=== PATIENT | female | born 1965 | race Caucasian/White ===

== ENCOUNTER → 2017-10-13 | Outpatient (CLI) | payer OTHER ==
[2017-10-13 16:56] LABS: EOS # 0.1 (0.04-0.40); EOS % 2.3 % (1.0-5.0); HEMATOCRIT 40.6 % (37.0-47.0); HEMOGLOBIN 13.5 g/dL (12.5-16.0); MEAN CELL VOLUME 85 fl (78-100); MEAN CORPUSCULAR HEMOGLOBIN 28 pg (27-31); MEAN CORPUSCULAR HGB CONC 33 g/dL (33-37); MONO # 0.6 (0.20-0.80); NEU # 2.8 (1.40-6.50); PLATELET COUNT 223 K/mm3 (130-400); RED BLOOD COUNT 4.76 M/mm3 (4.10-5.30); RED CELL DISTRIBUTION WIDTH 14.7 % (11.5-14.5); WHITE BLOOD COUNT 5.6 K/mm3 (4.8-10.8)
[2017-10-13 17:23] LABS: ALBUMIN 3.8 g/dL (3.5-5.0); BUN/CREATININE RATIO 20.8 (6.0-26.0); CALCIUM 9.2 mg/dL (8.4-10.2); POTASSIUM 4.1 mmol/L (3.6-5.0); TOTAL BILIRUBIN 0.6 mg/dL (0.2-1.3); TOTAL PROTEIN 7.4 g/dL (6.3-8.2)
== END ==
LOC: LAB 16:38
PROVIDERS: Nurse Practitioner Family
DX: R53.81 Other malaise (principal)

== ENCOUNTER → 2019-11-30 | Outpatient (CLI) | payer BC ==
[2019-11-30 10:47] LABS: EOS # 0.1 (0.04-0.40); EOS % 1.1 % (1.0-5.0); HEMATOCRIT 42.8 % (37.0-47.0); LYMPH# 2.5 (1.50-4.00); MEAN CELL VOLUME 87 fl (78-100); MEAN CORPUSCULAR HEMOGLOBIN 29 pg (27-31); MEAN CORPUSCULAR HGB CONC 33 g/dL (33-37); MEAN PLATELET VOLUME 9.5 fl (7.4-10.4); MONO # 0.5 (0.20-0.80); NEU # 5.6 (1.40-6.50); PLATELET COUNT 294 K/mm3 (130-400); WHITE BLOOD COUNT 8.8 K/mm3 (4.8-10.8)
[2019-11-30 11:40] LABS: POTASSIUM 4.3 mmol/L (3.5-5.1)
[2019-11-30 11:42] LABS: CALCIUM 9.3 mg/dL (8.3-10.5)
[2019-11-30 11:43] LABS: TOTAL PROTEIN 8.1 g/dL (6.4-8.3)
[2019-11-30 11:45] LABS: TOTAL BILIRUBIN 0.4 mg/dL (0.2-1.2)
== END ==
LOC: LAB 10:20
PROVIDERS: Family Medicine
DX: Z00.00 Encounter for general adult medical examination without abnormal findings (principal); E78.5 Hyperlipidemia, unspecified; R73.9 Hyperglycemia, unspecified

== ENCOUNTER → 2019-12-07 | Outpatient (CLI) | payer BC | LOC: MAMMO 11:30 | DX: Z12.31 Encounter for screening mammogram for malignant neoplasm of breast (principal); Z13.820 Encounter for screening for osteoporosis; N63.10 Unspecified lump in the right breast, unspecified quadrant; N63.20 Unspecified lump in the left breast, unspecified quadrant ==

== ENCOUNTER → 2019-12-08 | Outpatient (CLI) | payer BC | LOC: CARDLAB → CARDREHAB 08:00 → CARDLAB 08:53 | DX: E78.5 Hyperlipidemia, unspecified (principal); R06.00 Dyspnea, unspecified; R07.9 Chest pain, unspecified ==

== ENCOUNTER → 2019-12-13 | Outpatient (CLI) | payer BC | LOC: RAD 07:00 | DX: N63.10 Unspecified lump in the right breast, unspecified quadrant (principal); N63.20 Unspecified lump in the left breast, unspecified quadrant ==

== ENCOUNTER → 2019-12-23 | Outpatient (CLI) | payer BC | LOC: RAD 15:00 | DX: N63.25 Unspecified lump in the left breast, overlapping quadrants (principal); N63.15 Unspecified lump in the right breast, overlapping quadrants | CPT/HCPCS: 15989; 15990; A4648 ==

== ENCOUNTER → 2019-12-27 | Day surgery (SDC) | payer BC | LOC: MSO 07:27 | DX: Z12.11 Encounter for screening for malignant neoplasm of colon (principal); E11.9 Type 2 diabetes mellitus without complications | CPT/HCPCS: 00812; J2704; J7030 ==

== ENCOUNTER → 2020-04-25 | Outpatient (CLI) | payer BC ==
[2020-04-25 10:03] LABS: EOS # 0.1 (0.04-0.40); EOS % 1.1 % (1.0-5.0); HEMATOCRIT 43.2 % (37.0-47.0); HEMOGLOBIN 14.5 g/dL (12.5-16.0); LYMPH# 2.6 (1.50-4.00); MEAN CELL VOLUME 85 fl (78-100); MEAN CORPUSCULAR HEMOGLOBIN 28 pg (27-31); MEAN CORPUSCULAR HGB CONC 34 g/dL (33-37); MONO # 0.5 (0.20-0.80); NEU # 5.3 (1.40-6.50); PLATELET COUNT 302 K/mm3 (130-400); RED BLOOD COUNT 5.11 M/mm3 (4.10-5.30); RED CELL DISTRIBUTION WIDTH 13.9 % (11.5-14.5); WHITE BLOOD COUNT 8.5 K/mm3 (4.8-10.8)
[2020-04-25 10:15] LABS: ALBUMIN 3.9 g/dL (3.5-5.0)
[2020-04-25 10:16] LABS: CALCIUM 9.3 mg/dL (8.3-10.5)
[2020-04-25 10:17] LABS: TOTAL PROTEIN 7.5 g/dL (6.4-8.3)
[2020-04-25 10:19] LABS: TOTAL BILIRUBIN 0.4 mg/dL (0.2-1.2)
== END ==
LOC: LAB 09:48
PROVIDERS: Family Medicine
DX: Z00.00 Encounter for general adult medical examination without abnormal findings (principal); E78.5 Hyperlipidemia, unspecified

== ENCOUNTER → 2020-11-15 | Outpatient (CLI) | payer BC ==
[2020-11-15 10:03] LABS: BASO # 0.05 (0.02-0.10); EOS # 0.08 (0.04-0.40); EOS % 1.3 % (1.0-5.0); HEMATOCRIT 44.1 % (37.0-47.0); HEMOGLOBIN 15.1 g/dL (12.5-16.0); LYMPH# 2.13 (1.50-4.00); MEAN CELL VOLUME 85 fl (78-100); MEAN CORPUSCULAR HEMOGLOBIN 29 pg (27-31); MEAN CORPUSCULAR HGB CONC 34 g/dL (33-37); MEAN PLATELET VOLUME 9.1 fl (7.4-10.4); MONO # 0.48 (0.20-0.80); NEU # 3.56 (1.40-6.50); PLATELET COUNT 270 K/mm3 (130-400); WHITE BLOOD COUNT 6.3 K/mm3 (4.8-10.8)
[2020-11-15 10:17] LABS: POTASSIUM 4.5 mmol/L (3.5-5.1)
[2020-11-15 10:18] LABS: CALCIUM 9.3 mg/dL (8.3-10.5)
[2020-11-15 10:20] LABS: TOTAL PROTEIN 7.7 g/dL (6.4-8.3)
[2020-11-15 10:22] LABS: TOTAL BILIRUBIN 0.5 mg/dL (0.2-1.2)
== END ==
LOC: LAB 09:46
PROVIDERS: Family Medicine
DX: Z00.00 Encounter for general adult medical examination without abnormal findings (principal); E78.5 Hyperlipidemia, unspecified; E11.9 Type 2 diabetes mellitus without complications; E55.9 Vitamin D deficiency, unspecified

== ENCOUNTER → 2021-11-13 | Outpatient (CLI) | payer BC ==
[2021-11-13 10:48] LABS: BASO # 0.05 K/mm3 (0.02-0.10); EOS # 0.05 K/mm3 (0.04-0.40); EOS % 0.8 % (1.0-5.0); HEMATOCRIT 43.4 % (37.0-47.0); HEMOGLOBIN 14.8 g/dL (12.5-16.0); LYMPH# 2.28 K/mm3 (1.50-4.00); MEAN CELL VOLUME 84 fl (78-100); MEAN CORPUSCULAR HEMOGLOBIN 29 pg (27-31); MEAN CORPUSCULAR HGB CONC 34 g/dL (33-37); MEAN PLATELET VOLUME 9.1 fl (7.4-10.4); MONO # 0.33 K/mm3 (0.20-0.80); NEU # 3.65 K/mm3 (1.40-6.50); PLATELET COUNT 254 K/mm3 (130-400); RED BLOOD COUNT 5.16 M/mm3 (4.10-5.30); RED CELL DISTRIBUTION WIDTH 12.1 % (11.5-14.5); WHITE BLOOD COUNT 6.4 K/mm3 (4.8-10.8)
[2021-11-13 10:54] LABS: ALBUMIN 3.9 g/dL (3.5-5.0); POTASSIUM 4.2 mmol/L (3.5-5.1)
[2021-11-13 10:55] LABS: CALCIUM 9.3 mg/dL (8.3-10.5)
[2021-11-13 10:57] LABS: TOTAL PROTEIN 7.3 g/dL (6.4-8.3)
[2021-11-13 10:59] LABS: TOTAL BILIRUBIN 0.5 mg/dL (0.2-1.2)
== END ==
LOC: LAB 10:35
PROVIDERS: Family Medicine
DX: Z00.00 Encounter for general adult medical examination without abnormal findings (principal); Z13.820 Encounter for screening for osteoporosis; Z12.31 Encounter for screening mammogram for malignant neoplasm of breast; E78.5 Hyperlipidemia, unspecified; E66.9 Obesity, unspecified; E11.9 Type 2 diabetes mellitus without complications; D17.0 Benign lipomatous neoplasm of skin and subcutaneous tissue of head, face and neck; M21.622 Bunionette of left foot; J30.2 Other seasonal allergic rhinitis

== ENCOUNTER → 2021-11-14 | Outpatient (CLI) | payer BC | LOC: MAMMO 13:00 | DX: Z12.31 Encounter for screening mammogram for malignant neoplasm of breast (principal); N64.9 Disorder of breast, unspecified; Z78.0 Asymptomatic menopausal state ==

== ENCOUNTER → 2022-02-14 | Outpatient (CLI) | payer BC ==
[2022-02-14 09:15] LABS: ALBUMIN 3.9 g/dL (3.5-5.0); POTASSIUM 4.4 mmol/L (3.5-5.1)
[2022-02-14 09:16] LABS: CALCIUM 9.6 mg/dL (8.3-10.5)
[2022-02-14 09:18] LABS: TOTAL PROTEIN 7.2 g/dL (6.4-8.3)
[2022-02-14 09:19] LABS: TOTAL BILIRUBIN 0.6 mg/dL (0.2-1.2)
== END ==
LOC: LAB 08:40
PROVIDERS: Family Medicine
DX: E78.5 Hyperlipidemia, unspecified (principal); R74.01 Elevation of levels of liver transaminase levels; E11.9 Type 2 diabetes mellitus without complications

== ENCOUNTER 2024-03-24 08:59 | Outpatient (RCR) | payer BC | END 2024-03-25 | disposition home or self-care (01) | LOC: SPEECH | DX: G72.9 Myopathy, unspecified (principal); G82.50 Quadriplegia, unspecified ==

== ENCOUNTER 2024-03-24 09:01 | Outpatient (RCR) | payer BC | END 2024-03-25 | disposition home or self-care (01) | LOC: OT | DX: G72.9 Myopathy, unspecified (principal); G82.50 Quadriplegia, unspecified ==

== ENCOUNTER 2024-03-26 13:22 | Outpatient (RCR) | payer BC | END 2024-04-24 | LOC: PT | DX: G72.9 Myopathy, unspecified (principal); G82.50 Quadriplegia, unspecified; R13.12 Dysphagia, oropharyngeal phase ==

== ENCOUNTER 2024-04-26 07:58 | Outpatient (RCR) | payer BC | END 2024-05-25 | LOC: PT | DX: G72.9 Myopathy, unspecified (principal); R13.12 Dysphagia, oropharyngeal phase; G82.50 Quadriplegia, unspecified ==

== ENCOUNTER 2024-05-28 07:45 | Outpatient (RCR) | payer BC | END 2024-06-25 | LOC: PT | DX: G72.9 Myopathy, unspecified (principal); R13.12 Dysphagia, oropharyngeal phase ==

== ENCOUNTER → 2024-06-03 | Outpatient (CLI) | payer BC ==
[2024-06-03 08:56] LABS: BASO # 0.03 K/mm3 (0.02-0.10); EOS # 0.06 K/mm3 (0.04-0.40); EOS % 0.6 % (1.0-5.0); HEMATOCRIT 43.6 % (37.0-47.0); HEMOGLOBIN 13.9 g/dL (12.5-16.0); MEAN CELL VOLUME 96 fl (78-100); MEAN CORPUSCULAR HEMOGLOBIN 31 pg (27-31); MEAN CORPUSCULAR HGB CONC 32 g/dL (33-37); MONO # 0.42 K/mm3 (0.20-0.80); NEU # 5.38 K/mm3 (1.40-6.50); PLATELET COUNT 341 K/mm3 (130-400); RED BLOOD COUNT 4.54 M/mm3 (4.10-5.30); RED CELL DISTRIBUTION WIDTH 14.6 % (11.5-14.5); WHITE BLOOD COUNT 9.5 K/mm3 (4.8-10.8)
[2024-06-03 09:04] LABS: ALBUMIN 3.6 g/dL (3.5-5.0)
[2024-06-03 09:06] LABS: CALCIUM 10.4 mg/dL (8.3-10.5)
[2024-06-03 09:07] LABS: TOTAL PROTEIN 7.2 g/dL (6.4-8.3)
[2024-06-03 09:09] LABS: TOTAL BILIRUBIN 0.3 mg/dL (0.2-1.2)
== END ==
LOC: LAB 08:43
PROVIDERS: Internal Medicine
DX: E11.9 Type 2 diabetes mellitus without complications (principal); G73.7 Myopathy in diseases classified elsewhere